=== PATIENT | female | born 1965 | race African-American/Black ===

== ENCOUNTER 2017-12-26 16:18 | Emergency (ER) | payer SELFPAY ==
[2017-12-26 16:37] VITALS: BMI 26.4
[2017-12-26] MEDS ORDERED: ONDANSETRON 4 MG/2 ML VIAL IVPUSH ONE (16:37)
[2017-12-26] MEDS ORDERED: SODIUM CHLORIDE 1,000 ML IV STA (16:37)
[2017-12-26] MEDS ORDERED: FAMOTIDINE 20 MG/50 ML IVPB 20 MG/50 ML MG IVPB ONE ×2 (16:37→17:04)
[2017-12-26 16:54] LABS: BASO % 0.5 % (0-2.0); EOS % 0.9 % (0-4.5); HEMATOCRIT 37.2 % (32.4-45.2); HEMOGLOBIN 12.2 GM/dL (10.7-15.3); LYMPH % 26.5 % (8-40); MCH 26.8 pg (25.7-33.7); MCHC 32.9 g/dl (32.0-36.0); MEAN CELL VOLUME 81.3 fl (80-96); MEAN PLT VOLUME 8.8 fl (7.5-11.1); NEUT % 65.1 % (42.8-82.8); PLATELET COUNT 226 K/MM3 (134-434); RBC 4.57 M/mm3 (3.60-5.2); WHITE BLOOD COUNT 5.5 K/mm3 (4.0-10.0)
[2017-12-26] MEDS ORDERED: ONDANSETRON 4 MG/2 ML VIAL ONE (17:04)
[2017-12-26 17:18] LABS: ALBUMIN 3.9 g/dl (3.4-5.0); ANION GAP 7 MMOL/L (8-16); BILIRUBIN,TOTAL 0.5 mg/dL (0.2-1.0); BLOOD UREA NITROGEN 13 mg/dL (7-18); CALCIUM 9.3 mg/dL (8.5-10.1); CHLORIDE 104 mmol/L (98-107); CO2 30 mmol/L (21-32); CREATININE 0.8 mg/dL (0.55-1.02); GLUCOSE,RANDOM 81 mg/dL (74-106); LIPASE 87 U/L (73-393); POTASSIUM 3.6 mmol/L (3.5-5.1); SGOT/AST 17 U/L (15-37); SGPT/ALT 22 U/L (12-78); SODIUM 141 mmol/L (136-145); TOT PROT 7.8 g/dl (6.4-8.2)
[2017-12-26 17:19] LABS: ALK PHOS 71 U/L (45-117)
[2017-12-26 17:35] LABS: URINE APPEARANCE CLEAR; URINE BILIRUBIN NEGATIVE (<2.0 mg/dL); URINE COLOR STRAW; URINE GLUCOSE (UA) NEGATIVE (NEGATIVE); URINE KETONE NEGATIVE (NEGATIVE); URINE NITRITE NEGATIVE (NEGATIVE); URINE PROTEIN NEGATIVE (NEGATIVE); URINE UROBILINOGEN NEGATIVE mg/dL (0.2-1.0)
--- NOTE | 2017-12-26 17:37 | PDOC ---
History of Present Illness - General Chief Complaint: Bleeding from Anus Stated Complaint: BLOOD IN STOOL Time Seen by Provider: 12/26/17 16:30 History Source: Patient Exam Limitations: No Limitations - History of Present Illness Initial Comments: 12/26/17 17:33 Patient is a 52F with no significant medical history here today complaining of bright red blood per rectum that started today. Patient endorses an episode of vomiting, nausea. She states that she had a few bright red pieces of blood on the toilet paper and pain with defecation. No pain with urination. Endorses associated epigastric abdominal pain. Denies fevers, chills. Denies blood in vomit. Denies dysuria. Denies history of diverticulitis and diverticulosis. Past History - Past Medical History Allergies/Adverse Reactions: Allergies Allergy/AdvReac Type Severity Reaction Status Date / Time No Known Allergies Allergy Verified 12/26/17 16:35 Home Medications: Ambulatory Orders Metoprolol Succinate [Toprol Xl] 25 mg PO DAILY 12/26/17 COPD: No HTN: Yes - Suicide/Smoking/Psychosocial Hx Smoking History: Never smoked Information on smoking cessation initiated: No Hx Alcohol Use: No Drug/Substance Use Hx: No Substance Use Type: None Review of Systems - Review of Systems Comments:: 12/26/17 17:34 GENERAL/CONSTITUTIONAL: No fever or chills. No weakness. HEAD, EYES, EARS, NOSE AND THROAT: No change in vision. No sore throat. CARDIOVASCULAR: No chest pain or shortness of breath RESPIRATORY: No cough, wheezing, or hemoptysis. GASTROINTESTINAL: +nausea, vomiting. No diarrhea or constipation. GENITOURINARY: No dysuria, frequency, or change in urination. MUSCULOSKELETAL: No joint or muscle swelling or pain. No neck or back pain. SKIN: No rash NEUROLOGIC: No headache, vertigo, loss of consciousness, or change in strength/ sensation. ENDOCRINE: No increased thirst. No abnormal weight change HEMATOLOGIC/LYMPHATIC: No anemia, easy bleeding, or history of blood clots. ALLERGIC/IMMUNOLOGIC: No hives or skin allergy. *Physical Exam - Vital Signs Last Vital Signs Temp Pulse Resp BP Pulse Ox 97.8 F 86 18 153/104 100 12/26/17 16:35 12/26/17 16:35 12/26/17 16:35 12/26/17 16:35 12/26/17 16:35 - Physical Exam Comments: 12/26/17 17:35 GENERAL: Awake, alert, and fully oriented, in no acute distress RECTAL: Tender, external hemorrhoid, non-thrombosed, with no blood seen. No masses. Normal tone HEAD: No signs of trauma, normocephalic, atraumatic EYES: PERRLA, EOMI, sclera anicteric, conjunctiva clear ENT: Auricles normal inspection, hearing grossly normal, nares patent, oropharynx clear without exudates. Moist mucosa NECK: Normal ROM, supple, no lymphadenopathy, JVD, or masses LUNGS: No distress, speaks full sentences, clear to auscultation bilaterally HEART: Regular rate and rhythm, normal S1 and S2, no murmurs, rubs or gallops, peripheral pulses normal and equal bilaterally. ABDOMEN: Soft, nontender, normoactive bowel sounds. No guarding, no rebound. No masses EXTREMITIES: Normal inspection, Normal range of motion, no edema. No clubbing or cyanosis. NEUROLOGICAL: Cranial nerves II through XII grossly intact. Normal speech, normal gait, no focal sensorimotor deficits SKIN: Warm, Dry, normal turgor, no rashes or lesions noted. ED Treatment Course - LABORATORY CBC & Chemistry Diagram: 12/26/17 17:00 12/26/17 17:00 - ADDITIONAL ORDERS Additional order review: Laboratory Results 12/26/17 17:00 Sodium 141 Potassium 3.6 Chloride 104 Carbon Dioxide 30 Anion Gap 7 L BUN 13 Creatinine 0.8 Creat Clearance w eGFR > 60 Random Glucose 81 Calcium 9.3 Total Bilirubin 0.5 AST 17 ALT 22 Alkaline Phosphatase 71 Total Protein 7.8 Albumin 3.9 Lipase 87 12/26/17 17:00 RBC 4.57 MCV 81.3 MCHC 32.9 RDW 14.0 MPV 8.8 Neutrophils % 65.1 Lymphocytes % 26.5 Monocytes % 7.0 Eosinophils % 0.9 Basophils % 0.5 - Medications Given in the ED: ED Medications Discontinued Medications Generic Name Dose Route Start Last Admin Trade Name Freq PRN Reason Stop Dose Admin Famotidine/Sodium Chloride 20 mg in 50 mls @ 100 mls/hr 12/26/17 16:37 17:09 Pepcid 20 Mg Premixed Ivpb - IVPB 09/02/18 17:06 100 mls/hr ONCE ONE Administration Ondansetron HCl 4 mg 12/26/17 16:37 12/26/17 17:10 Zofran Injection IVPUSH 12/26/17 16:38 4 mg ONCE ONE Administration Medical Decision Making - Medical Decision Making 12/26/17 17:36 Patient is 52F here today with rectal bleeding. Vitals normal and stable. Will treat epigastric abd pain with fluids, zofran, pepcid. Nontender on exam. Patient has hemorrhoids that are likely cause of bleed. No alycia blood seen on exam. Will workup, likely discharge. 12/26/17 17:37 Laboratory Tests 12/26/17 12/26/17 17:00 17:00 WBC 5.5 Hgb 12.2 Plt Count 226 BUN 13 Creatinine 0.8 CBC normal. CMP reassuring. Pending UA, stool for occult blood. 12/26/17 17:59 UA shows UTI, stool for occult blood negative. Will treat with keflex, discharge. *DC/Admit/Observation/Transfer Diagnosis at time of Disposition: Acute hemorrhoid, UTI (urinary tract infection) - Discharge Dispostion Disposition: HOME Condition at time of disposition: Good Decision to Admit order: No - Referrals - Patient Instructions Printed Discharge Instructions: DI for Urinary Tract Infection (UTI), DI for Hemorrhoids Additional Instructions: Please return if you have any new, worsening or concerning symptoms. Please follow up with your primary care physician this week. - Post Discharge Activity
[2017-12-26 17:53] LABS: URINE LEUK ESTERASE 3+ (NEGATIVE)
[2017-12-26 17:54] LABS: EPI CELLS RARE /HPF (FEW); URINE BACTERIA RARE /hpf (NONE SEEN)
[2017-12-26] MEDS ORDERED: CEPHALEXIN MONOHYDRATE 500 MG CAPSULE (UD) PO ONE (18:01)
[2017-12-26] MEDS ORDERED: CEPHALEXIN MONOHYDRATE 500 MG CAPSULE (UD) ONE (18:17)
--- NOTE | 2017-12-26 18:28 | PDOC ---
Attending Attestation - HPI HPI: 12/26/17 18:37 The patient is a 52 year old female, with a significant past medical history of HTN, who presents to the ED complaining of blood from her rectum that began today. She describes her blood as bright red. She also reports nausea and vomiting associated with her chief complaint. She notes that she had pain during her most recent bowel movement. She also reports abdominal pain, localized in the epigastric region, ranging from mild to moderate, without radiation or modifying factors. The patient denies chest pain, shortness of breath, headache and dizziness. Denies fever, chills, or constipation. Denies dysuria, frequency, urgency and hematuria. Allergies: None Past surgical history: None reported Social History: No alcohol, tobacco or drug use reported - Physicial Exam PE: 12/26/17 18:38 GENERAL: Awake, alert, and fully oriented, in no acute distress HEAD: No signs of trauma, normocephalic, atraumatic EYES: PERRLA, EOMI, sclera anicteric, conjunctiva clear ENT: Auricles normal inspection, hearing grossly normal, nares patent, oropharynx clear without exudates. Moist mucosa NECK: Normal ROM, supple, no lymphadenopathy, JVD, or masses LUNGS: No distress, speaks full sentences, clear to auscultation bilaterally HEART: Regular rate and rhythm, normal S1 and S2, no murmurs, rubs or gallops, peripheral pulses normal and equal bilaterally. ABDOMEN: Soft, nontender, normoactive bowel sounds. No guarding, no rebound. No masses EXTREMITIES: Normal inspection, Normal range of motion, no edema. No clubbing or cyanosis. NEUROLOGICAL: Cranial nerves II through XII grossly intact. Normal speech, normal gait, no focal sensorimotor deficits SKIN: Warm, Dry, normal turgor, no rashes or lesions noted. RECTAL: (+) External hemorrhoid, tender, non-thrombosed, with no blood seen. No masses. Normal tone <Saúl Garcia - Last Filed: 12/26/17 18:37> - Resident Resident Name: Balbir Cummings - ED Attending Attestation I have performed the following: I have examined & evaluated the patient, The case was reviewed & discussed with the resident, I agree w/resident's findings & plan, Exceptions are as noted - HPI HPI: 12/26/17 18:14 52 yo female p/w complaint of bright red blood - Medical Decision Making 12/27/17 01:46 pt found to have externa hemorrhoids, not thrombosed IMP rectal bleeding with external hemorrhoids,no anemia <Juanita Mcgregor - Last Filed: 12/27/17 01:47>
[2017-12-26 18:50] VITALS: BP 136/88; PULSE 78; TEMP 98
--- NOTE | 2017-12-27 13:23 | EKG ---
Test Reason : Blood Pressure : / mmHG Vent. Rate : 082 BPM Atrial Rate : 082 BPM P-R Int : 174 ms QRS Dur : 086 ms QT Int : 378 ms P-R-T Axes : 072 039 012 degrees QTc Int : 441 ms NORMAL SINUS RHYTHM NONSPECIFIC T WAVE ABNORMALITY ABNORMAL ECG NO PREVIOUS ECGS AVAILABLE Confirmed by MAGDALENE ORDONEZ MD ([id number]) on 12/27/2017 1:22:50 PM Referred By: Confirmed By:MAGDALENE ORDONEZ MD
== END 2017-12-26 18:22 | disposition home or self-care (01) ==
LOC: JER 16:18
PROC: 3E033GC Introduction of Other Therapeutic Substance into Peripheral Vein, Percutaneous Approach (ICD-10-PCS; principal; 2017-12-26)
PROC: 3E033GC Introduction of Other Therapeutic Substance into Peripheral Vein, Percutaneous Approach (ICD-10-PCS; 2017-12-26)
DX: N39.0 Urinary tract infection, site not specified (principal); K64.8 Other hemorrhoids; I10 Essential (primary) hypertension
CPT/HCPCS: 36415; 80053; 81003; 81015; 82272; 83690; 85025; 93005; 93010; 99284-25; J7030